=== PATIENT | female | born 1995 | race Caucasian/White ===

== ENCOUNTER 2021-03-01 12:06 | Emergency (ER) | payer OTHER ==
[2021-03-01 12:19] VITALS: BP 128/88
--- NOTE | 2021-03-01 13:53 | ED Physician Documentation ---
History of Present Illness - Stated complaint Stated Complaint: L EAR PX - Chief complaint Chief Complaint: Heent - Additonal information Additional information: 25-year-old female presents the emergency department for evaluation of acute le ft ear pain ear swelling as well as swelling of the cheek and lymphadenopathy of her neck. She reports that about 2 weeks ago she popped a zit on her inner ear. It had remained tender but last weekend when she was swimming she thinks that she may have sprayed sunscreen into her ear since then she has had progressive swelling erythema and some yellow drainage from the ear canal. There have been no fevers. No history of similar. She is not a diabetic. She does endorse some mild vertiginous symptoms. Review of Systems Constitutional: reports: Fever Eyes: reports: Loss of vision Ears: reports: Other (Swelling and erythema) Nose: reports: Reviewed and negative Throat: reports: Reviewed and negative Cardiac: reports: Reviewed and negative Respiratory: reports: Reviewed and negative GI: reports: Reviewed and negative : reports: Reviewed and negative PD PAST MEDICAL HISTORY - Present Medications Home Medications: Ambulatory Orders Medication Instructions Recorded Confirmed Amox/Clav 875/125 [Augmentin] 1 each PO Q12H #14 tablet 03/01/21 - Allergies Allergies/Adverse Reactions: Allergies Allergy/AdvReac Type Severity Reaction Status Date / Time No Known Drug Allergies Allergy Verified 03/01/21 12:19 PD ED PE EXPANDED - General General: Alert, In Pain - HEENT HEENT: PERRL, Other (left ear and auricle mildy swollen and erythematous. Mild swellign erythema anerior cheek. + tender preauricular LAD) Results - Vitals Vitals: Vital Signs - 24 hr 03/01/21 12:16 Temperature 36.3 C L Heart Rate 108 H Respiratory 16 Rate Blood Pressure 128/88 H O2 Saturation 97 PD MEDICAL DECISION MAKING - ED course Complexity details: d/w patient ED course: 25-year-old female presents emergency department for evaluation of acute left ear pain swelling and some drainage from the ear canal after popping as it about 10 days ago but swimming last week and and getting sun screen sprayed into the ear canal. On exam she has ear cellulitis. I was unable to see beyond the ear canal into the TM. Given the cellulitis as well as auricular lymphadenopathy patient will be started on Augmentin. Recommended Tylenol or ibuprofen for discomfort. If not improved in 48 hours or worsening before then return for a second evaluation. Departure - Departure Disposition: 01 Home, Self Care Clinical Impression: Cellulitis of left external ear Condition: Stable Record reviewed to determine appropriate education?: Yes Prescriptions: Amox/Clav 875/125 [Augmentin] 1 each PO Q12H #14 tablet Comments: [place] you have swelling of the left ear and the ear canal that is consistent with a bacterial infection. This is called cellulitis. Please fill the prescription for the Augmentin and take twice daily as directed. I do recommend that you take Tylenol or ibuprofen [id number] with food for ear discomfort. You may also find some relief of the symptoms by placing a warm compress over the left ear for 10 minutes 3 times a day. With the antibiotics I would expect your symptoms to be markedly better in 48 hours. If not improving or worsening before then please return to the ER for a second look.
== END 2021-03-01 14:07 | disposition home or self-care (01) ==
LOC: ED 12:06
DX: H60.12 Cellulitis of left external ear (principal)
CPT/HCPCS: 99282; 99283

== ENCOUNTER 2021-05-28 13:27 | Emergency (ER) | payer OTHER ==
--- NOTE | 2021-05-28 14:16 | ED Physician Documentation ---
History of Present Illness - Stated complaint Stated Complaint: RASH-BACK ARM CHEST - Chief complaint Chief Complaint: General - Additonal information Additional information: 25-year-old female presents emergency department for evaluation of a right-sided thoracic rash that she noticed 2 days ago but the area became painful 5 days ago. She does have a history of chickenpox as a child. She has not received the shingles vaccine. Review of Systems Constitutional: denies: Fever, Chills Eyes: reports: Reviewed and negative Nose: reports: Reviewed and negative Throat: reports: Reviewed and negative Cardiac: reports: Reviewed and negative Respiratory: reports: Reviewed and negative Skin: reports: Rash PD PAST MEDICAL HISTORY - Present Medications Home Medications: Ambulatory Orders Medication Instructions Recorded Confirmed Amox/Clav 875/125 [Augmentin] 1 each PO Q12H #14 tablet 03/01/21 Gabapentin [Neurontin] 300 mg PO TID #27 cap 05/28/21 Valacyclovir HCl [Valtrex] 1,000 mg PO TID #21 tablet 05/28/21 - Allergies Allergies/Adverse Reactions: Allergies Allergy/AdvReac Type Severity Reaction Status Date / Time No Known Drug Allergies Allergy Verified 05/28/21 13:46 PD ED PE EXPANDED - General General: Alert, No acute distress - Cardiac Cardiac: Regular Rate, Radial strong equal, Cap refill < 2 sec - Respiratory Respiratory: Clear to ausultation roselia. No: Distress, Labored - Derm Derm: Rash (Painful blistering vesicular rash on the C8 dermatome right side that extends to the axilla.) - Neuro Neuro: Alert and Oriented X 3, CNII-XII intact - GCS Eye Opening: Spontaneous Motor: Obeys Commands Verbal: Oriented Total: 15 Results - Vitals Vitals: Vital Signs - 24 hr 05/28/21 13:42 Temperature 36.2 C L Heart Rate 92 Respiratory 14 Rate Blood Pressure 126/66 O2 Saturation 100 Oxygen O2 Source Room air PD MEDICAL DECISION MAKING - ED course Complexity details: d/w patient ED course: 25-year-old female presents emergency department with a painful blistering vesicular rash that does not cross the midline. This is a rash consistent with shingles. Patient had chickenpox infection as a child and has not received the shingles vaccine as an adult. She will be started on valacyclovir as well as Neurontin. Advise close follow-up with PCP. Emergent return precautions discussed Departure - Departure Disposition: 01 Home, Self Care Clinical Impression: Shingles Qualifiers: Herpes zoster complications: without complications Qualified Code(s): B02.9 - Zoster without complications Condition: Stable Record reviewed to determine appropriate education?: Yes Instructions: ED Shingles Prescriptions: Gabapentin [Neurontin] 300 mg PO TID #27 cap Valacyclovir HCl [Valtrex] 1,000 mg PO TID #21 tablet Comments: The rash that you have is due to the chickenpox infection you had of the child. This is called shingles. Please fill the prescription for the valacyclovir and begin taking as directed. I have prescribed a medication called Neurontin or gabapentin to help with the nerve pain. Please take 300 mg once on day 1, 300 mg twice daily on day 2, and 300 mg 3 times daily on day 3 For a total of 10 days. Please schedule follow-up with your primary care provider in 7 to 10 days. If you are continuing to have nerve pain they may want to do a longer prescription of gabapentin. This rash is very contagious until fully scabbed over. I do recommend that you wear a long sleeve shirt at all times around your children. You are eligible to get the shingles vaccine once this infection is completely healed. Please discuss this with your primary care provider. Your prescriptions have been electronically transmitted to the [facility] in [place]. .
[2021-05-28 14:48] VITALS: BP 128/77
== END 2021-05-28 14:49 | disposition home or self-care (01) ==
LOC: ED 13:27
DX: B02.9 Zoster without complications (principal)
CPT/HCPCS: 99282; 99283

== ENCOUNTER 2022-10-07 21:21 | Outpatient (CLI) | payer OTHER | END 2022-10-07 21:22 | disposition EMS.NT | LOC: EMS 21:21 | DX: R51.9 Headache, unspecified (principal); T58.11XA Toxic effect of carbon monoxide from utility gas, accidental (unintentional), initial encounter ==